=== PATIENT | male | born 1930 | race Hispanic/Latino ===

== ENCOUNTER 2016-08-18 06:25 | Day surgery (SDC) | payer MEDICARE, BC ==
[2014-03-15 11:43] VITALS: BMI 24.3
[2016-08-18] MEDS ORDERED: Lactated Ringer's 1,000 ML IV ONE ×2 (07:25)
[2016-08-18] MEDS ORDERED: Lidocaine 2% Jelly (Uro-Jet) ONE (07:41)
[2016-08-18] MEDS ORDERED: cefTRIAXone IV 1 gm in Dextros 50 ML IVPB ONE (07:41)
[2016-08-18] MEDS ORDERED: Iohexol 240 (50 ml) ONE (07:45)
[2016-08-18] MEDS ORDERED: Midazolam 2 MG/2 ML VIAL ONE (07:45)
[2016-08-18] MEDS ORDERED: Propofol 10 mg/ml Inj (20 ML) ONE (07:46)
[2016-08-18] MEDS ORDERED: Lidocaine Hydrochloride 5 ML INJ ONE (07:58)
[2016-08-18] MEDS ORDERED: Phenylephrine 10 mg/ml Inj ONE (08:15)
[2016-08-18] MEDS ORDERED: ePHEDrine 50 mg/ml Inj ONE (08:15)
[2016-08-18] MEDS ORDERED: HYDROmorphone 0.5 mg/0.5 ml ISec IVP PRN (08:30)
[2016-08-18] MEDS ORDERED: Sodium Chloride 0.9% 500 ML IV ONE (09:02)
--- NOTE | 2016-08-18 09:49 | PCM.SURG1 ---
Surgeon's Initial Post Op Note - Surgeon's Notes Surgeon: Charlene SINGER Sales Vendor: NONE Type of Anesthesia: General LMA Pre-Operative Diagnosis: BLADDER CALCULI. BPH. HEMATURIA Operative Findings: SAME Post-Operative Diagnosis: SAME Operation Performed: CYSTO, BILAT RTG PYELOGRAM. LASER CYSTOLITHOTRIPSY Specimen/Specimens Removed: BLADDER STONES Estimated Blood Loss: EBL {In ML}: 10 Blood Products Given: N/A Post-Op Condition: Good Date of Surgery/Procedure: 08/18/16 Time of Surgery/Procedure: 09:35
[2016-08-18 10:01] VITALS: O2SAT 100
[2016-08-18 11:08] VITALS: BP 124/60; PULSE 74; RESP 18; TEMP 97.4
--- NOTE | 2016-08-19 08:55 | OP ---
PROCEDURE DATE: 08/18/2016 PREOPERATIVE DIAGNOSES: Bladder calculi. Benign prostatic hypertrophy. Hematuria. POSTOPERATIVE DIAGNOSES: Bladder calculi. Benign prostatic hypertrophy. Hematuria. PROCEDURES: Cystoscopy. Bilateral retrograde pyelogram. Laser cystolithotripsy. OPERATING SURGEON: Dr. Dominique Londono. DESCRIPTION OF PROCEDURE: The patient was placed in the lithotomy position. Genitalia prepped and d raped sterilely. Anesthesia was provided by the anesthesiologist. A 22-Yoruba cystoscope sheath was introduced under direct vision. Urethra, prostate and bladder were inspected. FINDINGS: There was no stricture of the anterior urethra. There was evidence of prostatic hypertrop hy. The prostatic urethra was occlusive. There was a stone lodged within the proximal prostatic ure thra at the bladder neck and extending into the bladder. This was a yellow, hard and lobulated stone . There was inflammation in the prostatic urethra as well. The bladder was inspected. There was noted to be a large stone within the bladder on the floor of th e bladder, mostly on the left side. There was an additional stone on the right side, which extended into the diverticulum. The ureteral orifices were identified. Occlusive tip retrograde ureteropyelogram was performed on ea ch side. The retrograde pyelogram demonstrated no evidence of obstruction or filling defect within t he ureters or collecting systems. The bladder was reinspected with 70-degree lens and confirmed the above findings. Laser assisted lithotripsy was performed using the holmium laser and the 1000 micron fiber. The lase r lithotripsy was first performed on the stone within the prostatic urethra. Excellent fragmentation was obtained. Attention was then turned towards the large stone within the bladder. Again, excellent fragmentation was obtained. This stone was incompletely fragmented, was incompletely removed due to its large siz e. The stone fragments and sand were intermittently removed using the irrigation evacuator. The bladder was then inspected. The bladder wall was intact without evidence of injury. The cystoscope and sheath were removed. A Choi catheter was inserted. Urine was clear. Rectal examination was performed. Prostate was supple and smooth, approximately 25 grams in size, wi thout fixation, induration, or nodularity. The patient tolerated the procedure without complication. Dominique Londono MD cc: [id number] TT: 08/19/2016 08:54:37 mn
--- NOTE | 2016-08-19 14:14 | RAD ---
PROCEDURE: HISTORY: BLADDER STONE COMPARISON: CT abdomen and pelvic without contrast report 02/26/2016 TECHNIQUE: Please note the operative report by Dr. Dominique Londono FINDINGS: Multiple vague oval opacities project over the bladder consistent with patient's known bladder calculi and are consistent with subsequent filling defects after contrast infusion. Bilateral hemipelvic phleboliths are suggested as well. Both ureters and bilateral pelvocaliceal system are subsequently opacified with contrast without gross filling defect or hydronephrosis or hydroureter apparent . IMPRESSION: Findings as above
== END 2016-08-18 13:02 | disposition home or self-care (01) ==
LOC: C.SDS 06:25
PROVIDERS: ATTEND Urology
DX: N21.0 Calculus in bladder (principal); R31.9 Hematuria, unspecified; N40.0 Benign prostatic hyperplasia without lower urinary tract symptoms
CPT/HCPCS: 52317; 74420; 88300; J0696; J7040; J7120

== ENCOUNTER 2017-01-05 07:46 | Day surgery (SDC) | payer MEDICARE, BC ==
[2016-12-23 09:18] VITALS: BMI 24.5
[2017-01-05] MEDS ORDERED: Iohexol 240 (50 ml) ONE (08:34)
[2017-01-05] MEDS ORDERED: cefTRIAXone IV 1 gm in Dextros 50 ML IVPB ONE (08:34)
[2017-01-05] MEDS ORDERED: Lidocaine 2% Jelly (Uro-Jet) ONE (08:34)
[2017-01-05] MEDS ORDERED: Lactated Ringer's 1,000 ML IV ONE (08:35)
[2017-01-05] MEDS ORDERED: Propofol 10 mg/ml Inj (20 ML) ONE (08:39)
[2017-01-05] MEDS ORDERED: Lidocaine Hydrochloride 5 ML INJ ONE (08:40)
[2017-01-05] MEDS ORDERED: ePHEDrine 50 mg/ml Inj ONE (08:58)
[2017-01-05] MEDS ORDERED: HYDROmorphone 0.5 mg/0.5 ml ISec IVP PRN (10:22)
--- NOTE | 2017-01-05 10:34 | PCM.SURG1 ---
Surgeon's Initial Post Op Note - Surgeon's Notes Surgeon: Charlene Londono Sonography Technician: none Type of Anesthesia: General LMA Pre-Operative Diagnosis: cystolithiasis. bph Operative Findings: same Post-Operative Diagnosis: same Operation Performed: cystoscopy. ultrasonic cystolithotripsy. cystolitholapaxy Specimen/Specimens Removed: urine. baldder stones Estimated Blood Loss: EBL {In ML}: 30 Blood Products Given: N/A Post-Op Condition: Good Date of Surgery/Procedure: 01/05/17 Time of Surgery/Procedure: 10:20
--- NOTE | 2017-01-05 10:39 | RAD ---
HISTORY: Bladder stone COMPARISON: CT abdomen and pelvis without IV contrast performed 02/26/16 FINDINGS: BOWEL: Nonobstructive bowel gas pattern. Mild to moderate constipation. BONES: Normal. OTHER FINDINGS: Multiple pelvic calcifications identified along the left pelvis may reflect combination of pelvic phleboliths and or urinary bladder calculi. IMPRESSION: Mild to moderate constipation. Multiple pelvic calcifications identified along the left pelvis may reflect combination of pelvic phleboliths and or urinary bladder calculi.
[2017-01-05 11:51] VITALS: RESP 18
[2017-01-05 13:02] VITALS: BP 137/65; PULSE 60; TEMP 97.7; O2SAT 99
--- NOTE | 2017-01-08 07:29 | OP ---
PROCEDURE DATE: 01/05/2017 PREOPERATIVE DIAGNOSIS: Bladder calculi. POSTOPERATIVE DIAGNOSES: Bladder calculi and benign prostatic hypertrophy. PROCEDURES: Cystoscopy, cystolitholapaxy, cystolithotripsy. Ultrasonic lithotripsy was performed. SURGEON: Dominique Londono MD DESCRIPTION OF PROCEDURE: As follows. The patient received perioperative antibiotics. The patient was placed in lithotomy position. Genitalia prepped and draped sterilely. Anesthesia was applied by the anesthesiologist. A 28-Lao continuous flow resectoscope sheath was introduced under direct vision using the visual obturator. The urethra, prostate and bladder were inspected. FINDINGS: There was noted to be normal anterior urethra. There was evidence of prostatic hypertrophy with mild obstruction. There was no bladder neck contracture. Prostatic urethra was approximately 3 cm in length. There were noted to be multiple bladder stones. There were 2 free floating stones within the bladder. There was additional stone on the right side of the bladder. The stone appeared to be somewhat fixed in position and is possibly representing the stone probably within the right side bladder diverticulum. Ultrasonic lithotripsy was performed as follows. Using a right angle offset nephroscope lens and the adaptor through the resectoscope, the stones with the bladder were well visualized. The olympus ShockPulse ultrasonic generator was not operational. Therefore, the stores ultrasonic lithotripsy was performed, using the rigid ultrasonic probe. A lithotripsy was performed. The stones were broken into many fragments. Additionally, the ultrasonic lithotripsy employed suction to remove the small sand that was generated. Many of the small fragments were reviewed using the [place] Rocket[employer] evacuator. Large fragments were removed using the rigid grasping forceps. There was excellent fragmentation and removal of these 2 large stones. There was mild bleeding from the prostate. The bladder was reinspected. The bladder wall was intact. The resectoscope and sheath removed. Choi catheter was inserted. Bladder drainage was clear. The patient was returned to the supine position. The patient tolerated procedure without complication. There was incomplete stone removal, mainly the stone within the bladder diverticulum was not fragmented at this setting. The patient tolerated the procedure without complication. Dominique Londono MD cc: Dominique Londono MD [facility] # [id number]
== END 2017-01-05 12:45 | disposition home or self-care (01) ==
LOC: C.SDS 07:46
PROVIDERS: ATTEND Urology
DX: N21.0 Calculus in bladder (principal); N40.1 Benign prostatic hyperplasia with lower urinary tract symptoms; K59.00 Constipation, unspecified
CPT/HCPCS: 52317; 74000; 82365; 87086; 88300; J0696; J7120

== ENCOUNTER 2017-11-20 05:54 | Day surgery (SDC) | payer MEDICARE, BC ==
[2017-11-10 09:44] VITALS: BMI 24.3
[2017-11-20] MEDS ORDERED: cefTRIAXone IV 1 gm in Dextros 50 ML IVPB ONE (07:37)
[2017-11-20] MEDS ORDERED: Lidocaine 2% Jelly (Uro-Jet) ONE (07:37)
--- NOTE | 2017-11-20 10:39 | PCM.SURG1 ---
Surgeon's Initial Post Op Note - Surgeon's Notes Surgeon: Charlene Londono Supervisor Mapping: none Type of Anesthesia: General LMA Pre-Operative Diagnosis: Cystolithiasis Operative Findings: same, BPH, bladder diverticula Post-Operative Diagnosis: same. Bladder calculi, > 3cm Operation Performed: cystoscopy, laser cystolithotripsy, cystolitholapaxy Specimen/Specimens Removed: urine. bladder stones Estimated Blood Loss: EBL {In ML}: 15 Date of Surgery/Procedure: 11/20/17 Time of Surgery/Procedure: 09:45
[2017-11-20 11:37] VITALS: PULSE 57; TEMP 97.7; O2SAT 99
[2017-11-20 12:20] VITALS: BP 134/58; RESP 18
--- NOTE | 2017-11-23 01:44 | OP ---
Copied To: Dominique Londono MD Attending MD: Dominique Londono MD PROCEDURE DATE: 11/20/2017 PREOPERATIVE DIAGNOSES: Bladder calculi. Prostatic hypertrophy. Bladder diverticulum. POSTOPERATIVE DIAGNOSES: Bladder calculi. Prostatic hypertrophy. Bladder diverticulum. PROCEDURES: Cystoscopy. Cystolitholapaxy. Cystolithotripsy, using the Holmium laser. DESCRIPTION OF PROCEDURE: The patient received perioperative antibiotics. The genitalia prepped and draped sterilely after administration of general anesthesia. The patient was placed in the lithotomy position. Procedure was performed under video endoscopic control. A 22-Ivorian cystoscope sheath was introduced under direct vision. Urethra, prostate, and bladder were inspected. FINDINGS: There was no stricture in the anterior urethra. There was evidence of prostatic hypertrophy which was occlusive. There was no bladder neck contraction. There were noted to be large stones within the bladder. The large stone was approximately 3.5 cm in size. There were two other small stones, each approximately 2.5 cm in size. The bladder diverticulum was noted. The large bladder diverticulum was noted on the right side. There were no stone in the bladder diverticulum. Laser lithotripsy was performed using the Holmium laser and the 1000 micron fiber. High energy laser was employed. Laser lithotripsy was performed in various nodes including higher frequencies and low energy as well as lower frequencies and high energies. The dusting as well as the fragmentation modes were employed. There was excellent dusting and fragmentation of the stones performed. There was a large amount of debris. Continuous flow irrigation was employed. The stone fragments and sand were removed intermittently with irrigation as well as with the Microvasive evacuator as well as with the grasping forceps. from the stone burden was removed. The stones were noted to be dark yellow in color. The bladder was reinspected. The bladder was intact. There was no damage to the bladder mucosa. The fragments were removed using the 28-Ivorian continuous flow resectoscope which was introduced under direct vision using the visual obturator. Better stone removal was accomplished through the larger bore scope. The resectoscope and sheath removed. The bladder had been reinspected and confirmed the above findings. Residual stones were noted. The Choi catheter was inserted. Bladder drainage was light pink. There was mild bleeding noted from the prostate during the procedure. Rectal examination was performed. Prostate was supple and smooth, approximately 35 to 40 g in size without fixation, induration, or nodularity. There was no abnormal pelvic mass fixation or induration. The patient tolerated the procedure without complication. Dominique Londono MD
== END 2017-11-20 12:10 | disposition home or self-care (01) ==
LOC: C.SDS 05:54
PROVIDERS: ATTEND Urology
DX: N21.0 Calculus in bladder (principal); N32.3 Diverticulum of bladder
CPT/HCPCS: 52317; 82365; 87086; 88300; J0696

== ENCOUNTER 2017-12-09 05:55 | Day surgery (SDC) | payer MEDICARE, BC ==
[2017-11-10 09:43] VITALS: BMI 24.3
[2017-12-09] MEDS ORDERED: Lidocaine 2% Jelly (Uro-Jet) ONE (07:17)
[2017-12-09] MEDS ORDERED: cefTRIAXone 1 gm 1 GM/100 ML BAG IVPB ONE (07:17)
[2017-12-09] MEDS ORDERED: Propofol 10 mg/ml Inj (20 ML) ONE (08:04)
--- NOTE | 2017-12-09 09:52 | PCM.SURG1 ---
Surgeon's Initial Post Op Note - Surgeon's Notes Surgeon: Charlene Londono Gold Layer: none Type of Anesthesia: General LMA Pre-Operative Diagnosis: Bladder calculi. BPH. Bladder diverticulum Operative Findings: same Post-Operative Diagnosis: same Operation Performed: cysto,. laser cystolithotripsy. cystolitholapaxy Specimen/Specimens Removed: urine, stones Estimated Blood Loss: EBL {In ML}: 20 Blood Products Given: N/A Post-Op Condition: Good Date of Surgery/Procedure: 12/09/17 Time of Surgery/Procedure: 09:45
[2017-12-09] MEDS ORDERED: HYDROmorphone 0.5 mg/0.5 ml ISec IVP PRN (10:08)
[2017-12-09] MEDS ORDERED: Lactated Ringer's 1,000 ML IV SCH (10:15)
[2017-12-09 13:59] VITALS: BP 125/61; PULSE 56; RESP 20; TEMP 97.8; O2SAT 98
--- NOTE | 2017-12-11 09:01 | OP ---
Copied To: Dominique Londono MD Attending MD: Doimnique Londono MD PROCEDURE DATE: 12/09/2017 PREOPERATIVE DIAGNOSIS: Bladder calculi. POSTOPERATIVE DIAGNOSIS: Bladder calculi. PROCEDURES: 1. Cystoscopy. 2. Laser cystolithotripsy. 3. Cystolitholapaxy. OPERATING SURGEON: Dominique Londono MD DESCRIPTION OF PROCEDURE: As follows: The patient was placed in lithotomy position. The patient received perioperative antibiotics. The genitalia were prepped and draped sterilely. Anesthesia was applied by the anesthesiologist. A 22-German cystoscope sheath was introduced under direct vision. Urethra, prostate, and bladder were inspected with 30-degree lens. FINDINGS: There was noted to be phimosis. There was noted to be no stricture in the anterior leaflet. There was evidence of trilobar prostatic hypertrophy which was occlusive. There were multiple stones within the prostatic urethra. There were multiple stones within the bladder. There were large stones as well as small stone fragments. There were multiple stones within the right-sided bladder wall diverticulum. Laser lithotripsy was performed using the holmium laser and the 1000 micron fiber. The lithotripsy was performed and dusting mode. The stones were fragmented using the dusting mode as well as adherent to stone particles. Multiple irrigations were performed. Visibility was improved after irrigation. Multiple stones were removed using 0-degree cystoscope using the [employer] Evacuator as well as Shankar syringe. Further lithotripsy was performed with the holmium laser. The laser was employed. Thereafter, the stones were felt to be reduced to a small enough size to be removed without further fragmentation, the cystoscope sheath was removed. A 28-German continuous flow resectoscope sheath was introduced under direct vision using the visual obturator. The multiple stones were again evacuated using the [employer] Evacuator. The grasping forceps was introduced. Multiple stones were broken with the grasping forceps. Multiple stones were removed intact and others were broken and fragments were removed using the grasping forceps which crossed the . There were noted to be multiple stone fragments within the right-sided diverticulum. These too were fully removed, both by irrigation as well as by individual removal with grasping forceps. Repeat visualization of the bladder and diverticula were performed. The ureteral orifices were intact. There was no marily to the bladder wall. There were no residual fragments, either within the diverticula or within the bladder lumen. The resectoscope and sheath were removed. There were no residual fragments within the prostatic urethra or the distal urethra. The resectoscope and sheath were removed under direct vision. A 20-German Choi catheter was inserted. Mild hematuria was noted. Hematuria cleared properly with irrigation. Rectal examination was performed. There was no abnormal pelvic mass fixation or induration. The abdominal examination was performed. The abdomen was soft and nondistended. The patient was returned to the supine position. The patient tolerated the procedure without complication. The patient was transferred to recovery room in satisfactory condition. Dominique Londono MD
== END 2017-12-09 13:00 | disposition home or self-care (01) ==
LOC: C.SDS 05:55
PROVIDERS: ATTEND Urology
DX: N21.0 Calculus in bladder (principal); N32.3 Diverticulum of bladder
CPT/HCPCS: 52317; 82365; 87086; 88300; A4322; J0696